=== PATIENT | male | born 1995 | race Caucasian/White ===

== ENCOUNTER 2017-04-09 06:52 | Emergency (ER) | payer OTHER ==
[2017-04-09] MEDS ORDERED: Albuterol Sulfate 1.25 MG/3 ML NEB ONE (07:13)
[2017-04-09] MEDS ORDERED: predniSONE 20 MG TAB ONE (07:16)
== END 2017-04-09 07:30 | disposition home or self-care (01) ==
LOC: BURERS 06:52
DX: J45.909 Unspecified asthma, uncomplicated (principal); F17.210 Nicotine dependence, cigarettes, uncomplicated
CPT/HCPCS: 94640; J7506; J7620